=== PATIENT | male | born 1935 | race Caucasian/White ===

== ENCOUNTER → 2020-09-01 | Outpatient (CLI) | payer MEDICARE, BC | LOC: M.WC 08:37 | PROVIDERS: ATTEND Family Medicine | DX: M27.8 Other specified diseases of jaws (principal); E07.89 Other specified disorders of thyroid; H26.9 Unspecified cataract; I10 Essential (primary) hypertension; Z90.49 Acquired absence of other specified parts of digestive tract; Z85.810 Personal history of malignant neoplasm of tongue; Y63.2 Overdose of radiation given during therapy; Y78.1 Therapeutic (nonsurgical) and rehabilitative radiological devices associated with adverse incidents ==

== ENCOUNTER → 2020-09-06 | Outpatient (CLI) | payer MEDICARE, BC | LOC: M.WC 12:58 | PROVIDERS: ATTEND Family Medicine | DX: M27.8 Other specified diseases of jaws (principal); E07.89 Other specified disorders of thyroid; H26.9 Unspecified cataract; I10 Essential (primary) hypertension; Z90.49 Acquired absence of other specified parts of digestive tract; Z85.810 Personal history of malignant neoplasm of tongue; W90.8 Exposure to other nonionizing radiation ==

== ENCOUNTER → 2020-09-07 | Outpatient (CLI) | payer MEDICARE, BC | LOC: M.WC 08:55 | PROVIDERS: ATTEND Surgery | DX: M27.2 Inflammatory conditions of jaws (principal); E07.89 Other specified disorders of thyroid; H26.9 Unspecified cataract; I10 Essential (primary) hypertension; Z90.49 Acquired absence of other specified parts of digestive tract; Z85.810 Personal history of malignant neoplasm of tongue; W90.8 Exposure to other nonionizing radiation ==

== ENCOUNTER → 2020-09-08 | Outpatient (CLI) | payer MEDICARE, BC | LOC: M.WC 09:08 | PROVIDERS: ATTEND Family Medicine | DX: M27.2 Inflammatory conditions of jaws (principal); E07.89 Other specified disorders of thyroid; H26.9 Unspecified cataract; I10 Essential (primary) hypertension; Z90.49 Acquired absence of other specified parts of digestive tract; Z85.810 Personal history of malignant neoplasm of tongue; W90.8 Exposure to other nonionizing radiation ==

== ENCOUNTER → 2020-09-09 | Outpatient (CLI) | payer MEDICARE, BC | LOC: M.WC 09:19 | PROVIDERS: ATTEND Family Medicine | DX: M27.2 Inflammatory conditions of jaws (principal); E07.89 Other specified disorders of thyroid; H26.9 Unspecified cataract; I10 Essential (primary) hypertension; Z90.49 Acquired absence of other specified parts of digestive tract; Z85.810 Personal history of malignant neoplasm of tongue; W90.8 Exposure to other nonionizing radiation ==

== ENCOUNTER → 2020-09-12 | Outpatient (CLI) | payer MEDICARE, BC | LOC: M.WC 09:17 | PROVIDERS: ATTEND Surgery | DX: M27.2 Inflammatory conditions of jaws (principal); E07.89 Other specified disorders of thyroid; H26.9 Unspecified cataract; I10 Essential (primary) hypertension; Z90.49 Acquired absence of other specified parts of digestive tract; Z85.810 Personal history of malignant neoplasm of tongue; W90.8 Exposure to other nonionizing radiation ==

== ENCOUNTER → 2020-09-13 | Outpatient (CLI) | payer MEDICARE, BC | LOC: M.WC 08:57 | PROVIDERS: ATTEND Emergency Medicine Undersea and Hyperbaric Medicine | DX: M27.2 Inflammatory conditions of jaws (principal); E07.89 Other specified disorders of thyroid; H26.9 Unspecified cataract; I10 Essential (primary) hypertension; Z90.49 Acquired absence of other specified parts of digestive tract; Z85.810 Personal history of malignant neoplasm of tongue; W90.8 Exposure to other nonionizing radiation ==

== ENCOUNTER → 2020-09-14 | Outpatient (CLI) | payer MEDICARE, BC | LOC: M.WC 08:53 | PROVIDERS: ATTEND Surgery | DX: M27.2 Inflammatory conditions of jaws (principal); E07.89 Other specified disorders of thyroid; H26.9 Unspecified cataract; I10 Essential (primary) hypertension; Z90.49 Acquired absence of other specified parts of digestive tract; Z85.810 Personal history of malignant neoplasm of tongue; W90.8 Exposure to other nonionizing radiation ==

== ENCOUNTER → 2020-09-15 | Outpatient (CLI) | payer MEDICARE, BC | LOC: M.WC 08:24 | PROVIDERS: ATTEND Family Medicine | DX: M27.2 Inflammatory conditions of jaws (principal); E07.89 Other specified disorders of thyroid; H26.9 Unspecified cataract; I10 Essential (primary) hypertension; Z90.49 Acquired absence of other specified parts of digestive tract; Z85.810 Personal history of malignant neoplasm of tongue; W90.8 Exposure to other nonionizing radiation ==

== ENCOUNTER → 2020-09-16 | Outpatient (CLI) | payer MEDICARE, BC | LOC: M.WC 08:29 | PROVIDERS: ATTEND Family Medicine | DX: L59.8 Other specified disorders of the skin and subcutaneous tissue related to radiation (principal); M27.8 Other specified diseases of jaws; I10 Essential (primary) hypertension; H26.9 Unspecified cataract; Z85.118 Personal history of other malignant neoplasm of bronchus and lung; Z90.49 Acquired absence of other specified parts of digestive tract; Z90.89 Acquired absence of other organs; Y84.2 Radiological procedure and radiotherapy as the cause of abnormal reaction of the patient, or of later complication, without mention of misadventure at the time of the procedure ==

== ENCOUNTER → 2020-09-19 | Outpatient (CLI) | payer MEDICARE, BC | LOC: M.WC 08:39 | PROVIDERS: ATTEND Surgery | DX: M27.2 Inflammatory conditions of jaws (principal); E07.89 Other specified disorders of thyroid; H26.9 Unspecified cataract; I10 Essential (primary) hypertension; Z90.49 Acquired absence of other specified parts of digestive tract; Z85.810 Personal history of malignant neoplasm of tongue; W90.8 Exposure to other nonionizing radiation ==

== ENCOUNTER → 2020-09-20 | Outpatient (CLI) | payer MEDICARE, BC | LOC: M.WC 09:10 | PROVIDERS: ATTEND Emergency Medicine Undersea and Hyperbaric Medicine | DX: M27.2 Inflammatory conditions of jaws (principal); E07.89 Other specified disorders of thyroid; H26.9 Unspecified cataract; I10 Essential (primary) hypertension; Z90.49 Acquired absence of other specified parts of digestive tract; Z85.810 Personal history of malignant neoplasm of tongue; W90.8 Exposure to other nonionizing radiation ==

== ENCOUNTER → 2020-09-21 | Outpatient (CLI) | payer MEDICARE, BC | LOC: M.WC 09:19 | PROVIDERS: ATTEND Surgery | DX: M27.2 Inflammatory conditions of jaws (principal); E07.89 Other specified disorders of thyroid; H26.9 Unspecified cataract; I10 Essential (primary) hypertension; Z90.49 Acquired absence of other specified parts of digestive tract; Z85.810 Personal history of malignant neoplasm of tongue; W90.8 Exposure to other nonionizing radiation ==

== ENCOUNTER → 2020-09-22 | Outpatient (CLI) | payer MEDICARE, BC | LOC: M.WC 08:53 | PROVIDERS: ATTEND Family Medicine | DX: M27.2 Inflammatory conditions of jaws (principal); E07.89 Other specified disorders of thyroid; H26.9 Unspecified cataract; I10 Essential (primary) hypertension; Z90.49 Acquired absence of other specified parts of digestive tract; Z85.810 Personal history of malignant neoplasm of tongue; W90.8 Exposure to other nonionizing radiation ==

== ENCOUNTER → 2020-09-23 | Outpatient (CLI) | payer MEDICARE, BC | LOC: M.WC 08:24 | PROVIDERS: ATTEND Family Medicine | DX: M27.8 Other specified diseases of jaws (principal); L59.8 Other specified disorders of the skin and subcutaneous tissue related to radiation; I10 Essential (primary) hypertension; H26.9 Unspecified cataract; Z85.118 Personal history of other malignant neoplasm of bronchus and lung; Y84.2 Radiological procedure and radiotherapy as the cause of abnormal reaction of the patient, or of later complication, without mention of misadventure at the time of the procedure ==

== ENCOUNTER → 2020-09-26 | Outpatient (CLI) | payer MEDICARE, BC | LOC: M.WC 09:23 | PROVIDERS: ATTEND Surgery | DX: M27.2 Inflammatory conditions of jaws (principal); E07.89 Other specified disorders of thyroid; H26.9 Unspecified cataract; I10 Essential (primary) hypertension; Z85.810 Personal history of malignant neoplasm of tongue; W90.8 Exposure to other nonionizing radiation ==

== ENCOUNTER → 2020-09-27 | Outpatient (CLI) | payer MEDICARE, BC | LOC: M.WC 09:08 | PROVIDERS: ATTEND Emergency Medicine Undersea and Hyperbaric Medicine | DX: M27.8 Other specified diseases of jaws (principal); L59.8 Other specified disorders of the skin and subcutaneous tissue related to radiation; H26.9 Unspecified cataract; E07.89 Other specified disorders of thyroid; I10 Essential (primary) hypertension; Z85.810 Personal history of malignant neoplasm of tongue; Z90.49 Acquired absence of other specified parts of digestive tract; Y84.2 Radiological procedure and radiotherapy as the cause of abnormal reaction of the patient, or of later complication, without mention of misadventure at the time of the procedure ==

== ENCOUNTER → 2020-09-28 | Outpatient (CLI) | payer MEDICARE, BC | LOC: M.WC 08:33 | PROVIDERS: ATTEND Surgery | DX: M27.8 Other specified diseases of jaws (principal); L59.8 Other specified disorders of the skin and subcutaneous tissue related to radiation; I10 Essential (primary) hypertension; H26.9 Unspecified cataract; Z85.118 Personal history of other malignant neoplasm of bronchus and lung; Z90.89 Acquired absence of other organs; Y84.2 Radiological procedure and radiotherapy as the cause of abnormal reaction of the patient, or of later complication, without mention of misadventure at the time of the procedure ==

== ENCOUNTER → 2020-09-29 | Outpatient (CLI) | payer MEDICARE, BC | LOC: M.WC 08:41 | PROVIDERS: ATTEND Family Medicine | DX: M27.8 Other specified diseases of jaws (principal); L59.8 Other specified disorders of the skin and subcutaneous tissue related to radiation; E07.89 Other specified disorders of thyroid; H26.9 Unspecified cataract; I10 Essential (primary) hypertension; Z90.89 Acquired absence of other organs; Z85.810 Personal history of malignant neoplasm of tongue; Y84.2 Radiological procedure and radiotherapy as the cause of abnormal reaction of the patient, or of later complication, without mention of misadventure at the time of the procedure ==

== ENCOUNTER → 2020-09-30 | Outpatient (CLI) | payer MEDICARE, BC | LOC: M.WC 09:00 | PROVIDERS: ATTEND Family Medicine | DX: M27.2 Inflammatory conditions of jaws (principal); E07.89 Other specified disorders of thyroid; H26.9 Unspecified cataract; I10 Essential (primary) hypertension; Z90.89 Acquired absence of other organs; Z85.810 Personal history of malignant neoplasm of tongue; W90.8 Exposure to other nonionizing radiation ==

== ENCOUNTER → 2020-10-04 | Outpatient (CLI) | payer MEDICARE, BC | LOC: M.WC 08:56 | PROVIDERS: ATTEND Emergency Medicine Undersea and Hyperbaric Medicine | DX: M27.2 Inflammatory conditions of jaws (principal); E07.89 Other specified disorders of thyroid; H26.9 Unspecified cataract; I10 Essential (primary) hypertension; Z90.89 Acquired absence of other organs; Z85.810 Personal history of malignant neoplasm of tongue; W90.8 Exposure to other nonionizing radiation ==

== ENCOUNTER → 2020-10-05 | Outpatient (CLI) | payer MEDICARE, BC | LOC: M.WC 08:36 | DX: M27.2 Inflammatory conditions of jaws (principal); E07.89 Other specified disorders of thyroid; H26.9 Unspecified cataract; I10 Essential (primary) hypertension; Z90.49 Acquired absence of other specified parts of digestive tract; Z85.810 Personal history of malignant neoplasm of tongue; W90.8 Exposure to other nonionizing radiation ==